=== PATIENT | female | born 1975 | race African-American/Black ===

== ENCOUNTER 2022-08-21 08:40 | Emergency (ER) | payer OTHER, SELFPAY ==
[2022-08-21] MEDS ORDERED: Metoprolol Tartrate 5 MG/5 ML VIAL ONE (09:01)
[2022-08-21 09:03] LABS: #Basophils 0.1 thou/uL (0.0-0.2); #Eosinphils 0.1 thou/uL (0.0-0.7); #Lymphocytes 1.8 thou/uL (1.20-3.40); #Monocytes 0.5 thou/uL (0.11-0.59); #Neutrophils 2.9 thou/uL (1.40-6.50); %Eosinophils 2.1 % (0.0-10.0); %Lymphocytes 33.7 % (21.0-51.0); %Monocytes 8.5 % (0.0-10.0); %Neutrophils 54.7 % (42.0-75.0); Hemoglobin 11.4 g/dL (12.0-16.0); Mean Corpuscular HGB CONC 31.2 g/dL (32.0-36.0); Mean Corpuscular Hemoglobin 26.2 pg (27.0-31.0); Mean Corpuscular Volume 84.2 fl (78.0-98.0); Mean Platelet Volume 6.2 fL (7.4-10.4); Platelet Count 274 10x3/uL (130-400); Red Blood Cell (RBC) Count 4.34 mill/uL (4.20-5.40); White Blood Cell (WBC) Count 5.2 10x3/uL (4.8-10.8)
[2022-08-21 09:14] LABS: ALT (SGPT) 25 U/L (8-55); AST (SGOT) 17 U/L (5-34); Albumin 3.9 g/dL (3.5-5.0); Alkaline Phosphatase 72 U/L (40-110); Anion Gap 16 mmol/L (10-20); BUN (Urea Nitrogen) 13 mg/dL (7.0-18.7); Bilirubin, Total 0.8 mg/dL (0.2-1.2); Calc. Creatinine Clearance 0 mL/min (70-130); Calcium 9.2 mg/dL (7.8-10.44); Carbon Dioxide 18 mmol/L (22-29); Chloride 108 mmol/L (98-107); Estimated GFR 68; Globulin 3.2 g/dL (2.4-3.5); Glucose 129 mg/dL (70-105); Potassium 3.9 mmol/L (3.5-5.1); Protein, Total 7.1 g/dL (6.0-8.3); Sodium 138 mmol/L (136-145)
[2022-08-21] MEDS ORDERED: Metoprolol Tartrate 50 MG TAB ONE (09:29)
[2022-08-21] MEDS ORDERED: cefTRIAXone (ROCEPHIN) 1 GM VIAL ONE (10:03)
[2022-08-21] MEDS ORDERED: Sodium Chloride 0.9% 100 ML ONE (10:03)
[2022-08-21] MEDS ORDERED: Labetalol HCl 100 MG/20 ML VIAL ONE (10:46)
== END 2022-08-21 11:59 | disposition home or self-care (01) ==
LOC: NAV ERS 08:40
DX: J18.9 Pneumonia, unspecified organism (principal); I48.91 Unspecified atrial fibrillation; Z79.899 Other long term (current) drug therapy
CPT/HCPCS: 71046; 80053; 83605; 83880; 84484; 85025; 87040; 93005; 96365; 96375; J0696; J3490

== ENCOUNTER 2022-08-24 01:13 | Emergency (ER) | payer BC, SELFPAY ==
[2022-08-24] MEDS ORDERED: Diltiazem 125 MG/25 ML SDV ONE (01:55)
[2022-08-24] MEDS ORDERED: Sodium Chloride 0.9% 100 ML ONE (01:58)
[2022-08-24] MEDS ORDERED: Aspirin Chewable 81 MG TAB ONE (02:16)
[2022-08-24 02:17] LABS: Hemoglobin 11.3 g/dL (12.0-16.0); Mean Corpuscular Hemoglobin 26.4 pg (27.0-31.0); Mean Corpuscular Volume 85.4 fl (78.0-98.0); Mean Platelet Volume 5.9 fL (7.4-10.4); Platelet Count 288 10x3/uL (130-400); Red Blood Cell (RBC) Count 4.27 mill/uL (4.20-5.40); White Blood Cell (WBC) Count 5.7 10x3/uL (4.8-10.8)
[2022-08-24 02:26] LABS: ALT (SGPT) 39 U/L (8-55); AST (SGOT) 25 U/L (5-34); Albumin 3.9 g/dL (3.5-5.0); Alkaline Phosphatase 68 U/L (40-110); Anion Gap 11 mmol/L (10-20); BUN (Urea Nitrogen) 17 mg/dL (7.0-18.7); Bilirubin, Total 0.3 mg/dL (0.2-1.2); Calc. Creatinine Clearance 0 mL/min (70-130); Calcium 9.8 mg/dL (7.8-10.44); Carbon Dioxide 21 mmol/L (22-29); Chloride 112 mmol/L (98-107); Estimated GFR 76; Globulin 3.1 g/dL (2.4-3.5); Glucose 111 mg/dL (70-105); Potassium 3.9 mmol/L (3.5-5.1); Sodium 140 mmol/L (136-145)
[2022-08-24 02:30] LABS: Eosinophils 3 % (0-10); Lymphocytes 45 % (21-51); MDiff Complete? YES; Monocytes 3 % (0-10); Neutrophil 49 % (42-75); Platelet Adequacy Comment Appears Adequate
[2022-08-24 02:49] LABS: Lipase 37 U/L (8-78)
[2022-08-24] MEDS ORDERED: Furosemide 40 MG/4 ML VIAL ONE (02:50)
[2022-08-24 03:41] LABS: SARS-CoV-2 NAA Rapid Test Not Detected (NotDetected)
== END 2022-08-24 03:36 | disposition short-term general hospital (02) ==
LOC: NAV ERS 01:13
DX: I48.92 Unspecified atrial flutter (principal); I50.9 Heart failure, unspecified; Z20.822 Contact with and (suspected) exposure to COVID-19; Z79.82 Long term (current) use of aspirin
CPT/HCPCS: 71045; 80053; 83690; 83880; 84484; 85025; 93005; 96365; 96375; 96376; J1940; U0002

== ENCOUNTER 2022-09-18 12:22 | Outpatient (CLI) | payer BC | END 2022-09-18 12:23 | disposition home or self-care (01) | LOC: NAV RAD 12:22 | PROVIDERS: ATTEND Nurse Practitioner Family | DX: J81.0 Acute pulmonary edema (principal) | CPT/HCPCS: 71046 ==